=== PATIENT | male | born 1960 | race American Indian/Alaskan Native ===

== ENCOUNTER 2021-10-28 15:36 | Emergency (ER) | payer OTHER ==
[~2021-10-28 15:36] MED LIST: ZIPRASIDONE MESYLATE 20 MG VIAL IM ONE
[2021-10-28] MEDS ORDERED: LORazepam 2 MG/ML VIAL IM ONE (15:38)
[2021-10-28] MEDS ORDERED: diphenhydrAMINE 50 MG/ML VIAL IM ONE (15:38)
[2021-10-28] MEDS ORDERED: INSULIN REGULAR, HUMAN 100 UNITS/1 ML IV SCH (17:50)
[2021-10-28] MEDS ORDERED: SODIUM CHLORIDE 0.9% 1000 ML 1,000 ML IV SCH (18:15)
[2021-10-28 19:27] LABS: Basophils # (Auto) 0.1 K/mm3 (0.0-0.1); Basophils % (Auto) 0.5 % (0.0-1.8); Hemoglobin 12.6 gm/dl (11.8-15.2); Lymphocytes # (Auto) 0.8 K/mm3 (1.2-5.4); Lymphocytes % (Auto) 7.7 % (13.4-35.0); Mean Corpuscular HGB Conc 34 % (32-34); Mean Corpuscular Volume 83 fl (84-94); Monocytes # (Auto) 0.5 K/mm3 (0.0-0.8); Monocytes % (Auto) 4.5 % (0.0-7.3); Platelet Count 140 K/mm3 (140-440); Red Blood Count 4.45 M/mm3 (3.65-5.03)
[2021-10-28 19:43] LABS: Calcium 9.3 mg/dL (8.4-10.2)
[2021-10-28] MEDS ORDERED: SODIUM CHLORIDE 0.9% 1000 ML 1,000 ML IV ONE (20:14)
[2021-10-28 21:58] LABS: Bacteria,Urine 1+ /HPF (Negative); Bilirubin,Urine NEG (Negative); Blood,Urine SM (Negative); Color,Urine Yellow (Yellow); Mucus,Urine FEW /HPF; Urobilinogen,Urine < 2.0 mg/dL (<2.0)
[2021-10-28 22:03] LABS: Amphetamine Screen,Urine Negative; Benzodiazepines Screen,Urine Negative; Cannabinoid Screen,Urine Negative; Cocaine Screen,Urine Negative; Methadone Screen,Urine Negative; Opiate Screen,Urine Negative
[2021-10-28 23:03] LABS: Calcium 8.6 mg/dL (8.4-10.2)
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
[2021-10-28] MEDS ORDERED: INSULIN REGULAR, HUMAN 100 UNITS/1 ML IV ONE (23:42)
[2021-10-29] MEDS ORDERED: DEXTROSE 50% IN WATER (25GM) 50 ML SYRINGE IV PRN (04:06)
[2021-10-29] MEDS: INSULIN REGULAR, HUMAN 100 UNITS/1 ML SUB-Q SCH ×3 (04:18→09:43)
[2021-10-29 09:46] VITALS: BP 177/65
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
[2021-10-29] MEDS ORDERED: ZIPRASIDONE MESYLATE 20 MG VIAL IM PRN (13:19)
[2021-10-29] MEDS ORDERED: diphenhydrAMINE 50 MG/ML VIAL ONE (15:53)
[2021-10-29] MEDS ORDERED: diphenhydrAMINE 50 MG/ML VIAL IM ONE (15:53)
[2021-10-29] MEDS ORDERED: ZIPRASIDONE MESYLATE 20 MG VIAL IM ONE (15:53)
== END 2021-10-29 17:50 ==
LOC: EDBD → EEVIPCON 15:36 → ED 15:36
DX: F29 Unspecified psychosis not due to a substance or known physiological condition (principal); R45.1 Restlessness and agitation; I10 Essential (primary) hypertension; E11.9 Type 2 diabetes mellitus without complications
CPT/HCPCS: 36415; 80048; 80053; 80307; 81001; 82010; 82962; 85025; 96361; 96372; 96374; 96376; 99284; J1200; J2060; J3486; J7030; 80320; Q9967; G0480; J1815